=== PATIENT | male | born 1950 | race Caucasian/White ===

== ENCOUNTER → 2021-04-19 | Outpatient (CLI) | payer MEDICARE, BC | LOC: CT 15:07 | PROVIDERS: ATTEND Emergency Medicine | DX: M54.50 Low back pain, unspecified (principal); M54.2 Cervicalgia; M25.531 Pain in right wrist; W19.XXXA Unspecified fall, initial encounter; Z91.89 Other specified personal risk factors, not elsewhere classified | CPT/HCPCS: 72110; 72125 ==